=== PATIENT | male | born 1950 | race Caucasian/White ===

== ENCOUNTER 2025-06-06 12:23 | Inpatient (IN) | payer OTHER, SELFPAY ==
[2025-06-05 20:33] VITALS: BP 127/69
[2025-06-05 21:16] VITALS: BMI 24.1
[2025-06-05 21:31] VITALS: BP 117/75
[2025-06-05 21:31] LABS: Hematocrit 34.3 % (39.0-52.0); Hemoglobin 10.9 g/dL (13.0-18.0); Mean Corp Hgb Conc. 31.8 g/dL (33.0-37.0); Mean Corpuscular Volume 87.5 fL (80.0-94.0); Nucleated Red Blood Cells % 0 % (-); Platelet Count 235 10^3/uL (130-400); Red Cell Dist. Width 13.2 % (11.5-14.5)
[2025-06-05 21:41] LABS: INR 1.03; PT 13.8 Sec (11.4-14.6)
[2025-06-05 21:43] LABS: APTT 30.0 Sec (23.4-35.0)
--- NOTE | 2025-06-05 21:51 | ED.GENMED ---
History of Present Illness
General
Chief Complaint: Eye Problems
Source: patient and spouse
Exam Limitations: none
Time Seen by Provider: 06/05/25 21:04
Nursing documentation reviewed up to this point in time: agreed with
History of Present Illness
History of Present Illness:
Note:
CHIEF COMPLAINT(S)
Visual disturbance in the right eye since yesterday afternoon.
HISTORY OF PRESENT ILLNESS
The patient is a 75-year-old male who presents with a visual disturbance in his right eye, which began yesterday afternoon. Initially, the patient thought it was a smudge on his glasses, but cleaning them did not improve his vision. He reports that
the affected area, specifically in the left lower quadrant of the right eye, has gotten progressively larger since midday today. The patient denies any drainage or discharge from the eye, describing it more as a 'color thing blocking the vision.'
The patient is unable to clearly make out objects or finger counts when using the right eye.
The patient expressed concern about a potential blood clot or stroke, as there has been no resolution of symptoms. He does not have a history of hypertension and denies taking blood pressure medications.
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 He notes that he has been managing some previous thumb pain with aspirin.
SOCIAL HISTORY
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 He does not smoke, drink alcohol, or use recreational drugs.
REVIEW OF SYSTEMS
- Vision: Lower left quadrant visual disturbance in the right eye.
- Musculoskeletal: Reports neck pain associated with repetitive physical activity.
PHYSICAL EXAM
General: Alert, no acute distress.
Skin: Warm, dry.
Head: Normocephalic, atraumatic.
Neck: Supple, complains of neck pain.
Eye: Visual field deficit noted in the left lower quadrant of the right eye.
Ears, Nose, Mouth, and Throat: Oral mucosa moist.
Cardiovascular: Normal peripheral perfusion, no edema.
Respiratory: Respirations are non-labored.
Gastrointestinal: Abdomen nondistended.
Back: Normal range of motion, normal alignment.
Musculoskeletal: Normal range of motion, normal strength, reports neck pain.
Neurological: Alert and oriented to person, place, time, and situation; no focal neurological deficit observed aside from the visual issue.
Psychiatric: Cooperative, appropriate mood & affect.
PROBLEM LIST
Acute:
- Visual disturbance in the right eye, left lower quadrant.
- Neck pain.
PLAN
The plan includes further evaluation for potential blood clot in the brain or eye, or a retinal detachment. The patient will undergo a neurological evaluation, IV placement, blood tests, and a CT scan of the head. Hospital observation may be
required overnight for further assessment and management.
DIFFERENTIAL DIAGNOSIS
The Differential Diagnosis includes, in no particular order and is not limited to:
- Retinal detachment
- Stroke or transient ischemic attack
- Retinal vein occlusion
- Central retinal artery occlusion
- Macular degeneration
- Optic neuritis
- Hypertensive retinopathy
- Diabetic retinopathy
- Migraine with aura
- Vitreous hemorrhage
CARE-UPDATE
06/05/25 - 22:46
TT head and angiography show no occlusion or hemorrhage. Plan to admit the patient for further evaluation of transient visual abnormalities due to visual field cuts.
EKG
My independent EKG interpretation is:
- Time of EKG: Not provided
- Rhythm: Normal sinus rhythm
- Heart Rate: 61 bpm
- WI Interval: Normal
- QRS Duration: Normal
- QT Interval: Normal
- [place]: Not provided
- Abnormalities: No ST segment elevation
Disposition:
SUMMARY OF ENCOUNTER
The patient, a 75-year-old male, presented to the emergency department with a visual disturbance in the right eye, specifically a deficit in the left lower quadrant. After initial evaluation and tests, including a CT scan, it was determined that the
patient likely experienced an acute cerebrovascular accident (CVA) with a related visual field cut. The CT angiography of the head showed no signs of intracranial hemorrhage or large vessel occlusion. The condition was discussed with the neurology
team to determine an appropriate treatment strategy.
DISPOSITION
Admit for further evaluation and observation.
ASSESSMENT
Likely acute cerebrovascular accident (CVA) with visual field cut.
PLAN
The patient will be started on aspirin 81 mg daily, clopidogrel (Plavix) 75 mg daily, and atorvastatin 40 mg daily to manage the suspected CVA. Additional imaging, including an MRI of the brain without contrast and an echocardiogram, will be
conducted to further assess the patients condition.
INDEPENDENT REVIEW OF LABS AND INTERPRETATION OF TESTS
My independent CT angiography interpretation shows no intracranial hemorrhage or acute blockage.
MANAGEMENT OF THE PATIENTS CARE WAS DISCUSSED WITH
Discussed with Dr. Cedeno from neurology, who recommended the current medication plan and additional imaging studies.
MEDICATION RECONCILIATION
1. Aspirin 81 mg daily.
2. Clopidogrel (Plavix) 75 mg daily.
3. Atorvastatin 40 mg daily.
MEDICAL DECISION MAKING
1. Number and Complexity of Problems Addressed: Chronic conditions affecting care include visual disturbance potentially related to acute cerebrovascular accident. Differential diagnosis considers retinal detachment, stroke, retinal vein or artery
occlusion, macular degeneration, and more.
2. Data:
- Category 1: My independent interpretation of the CT angiography showed no signs of intracranial hemorrhage or acute blockage. An MRI of the brain without contrast and an echocardiogram were considered for further evaluation.
- Category 3: Collaboration and discussion of the patients care with Dr. Cedeno from neurology.
3. Risk:
Decisions regarding medication management and additional imaging were influenced by the need to address the suspected CVA and visual field cut. Admission for observation and further evaluation was deemed necessary due to the complexity and risk
associated with the patients presenting symptoms.
DIAGNOSIS
1. Acute CVA with visual field cut (ICD-10: I63.9).
Past History
Past History
ED Past Medical History: Other (Agree with past medical history)
Social History
Personal:
Living: with family
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
Phy Exam
Physical Exam
Physical Exam:
.
NIH Stroke Score
Level of Consciousness: 0 - Alert
LOC questions: 0-Answers both correctly
LOC Commands: 0-Performs both correctly
Best Gaze: 0-Normal
Visual Turk: 1=Partial hemianopia
Facial palsy: 0=Normal, symmetrical
Motor - Right Arm: 0=No drift 10 seconds
Motor - Left Arm: 0=No drift 10 seconds
Motor - Right Le-No drift 5 seconds
Motor - Left Le-No drift 5 seconds
Limb Ataxia: 0-Absent
Sensation: 0-Normal
Best Language: 0-No aphasia
Dysarthria: 0-Normal
Extinction and Inattention: 0-No abnormality
Total Score:: 1
Alteplase Contraindication
Reasons for NON-Treatment with Thrombolytics: Time
Ad Coma Scale
Eye Opening: Spontaneous
Verbal Response: Oriented
Motor Response: Obeys Commands
GCS Total Score: 15
Course
Orders/Labs/Results
Orders:
Orders
06/05/25 21:15
Electrocardiogram (*1) Stat
Reason for Study: Other
Other Reason for Exam: neuro symptoms
CT Head & Neck Angio W/wo IV Urgent
Comment:
Reason For Exam: left visual field cut since yesterday
Cardiac Monitoring- Treatment ONCE
EKG- Treatment ONCE
Pulse Ox/cont/shift [RESP] Stat
Quantity: 1
06/05/25 21:16
IV Insert/Care/Rem.- Treatment PRN
06/05/25 21:24
Complete Blood Count/With Diff Urgent
Comprehensive Metabolic Panel Urgent
PTT Urgent
Prothrombin Time Urgent
06/05/25 22:43
Aspirin 325 mg PO NOW STA
Clopidogrel Bisulfate [Plavix] 300 mg PO NOW STA
Abnormal Lab Results
06/05/25
21:24
RBC 3.92 L 10^6/uL
(4.70-6.10)
Hgb 10.9 L g/dL
(13.0-18.0)
Hct 34.3 L %
(39.0-52.0)
MCHC 31.8 L g/dL
(33.0-37.0)
Monocytes % 9.6 H %
(1.7-9.3)
BUN 34 H mg/dl
(9-20)
Total Bilirubin < 0.1 L mg/dl
(0.2-1.3)
06/05/25 21:24
06/05/25 21:24
Vital Signs
Initial and Last Documented VS:
Initial Vital Signs
Temp Pulse Resp BP Pulse Ox
97.5 F 74 18 127/69 97
06/05/25 20:33 06/05/25 20:33 06/05/25 20:33 06/05/25 20:33 06/05/25 20:33
Last Documented Vital Signs
Temp Pulse Resp BP Pulse Ox
97.5 F 61 14 117/75 97
06/05/25 20:33 06/05/25 21:31 06/05/25 21:31 06/05/25 21:31 06/05/25 21:51
*Pulse Oximetry
SaO2: 97
Oxygen Mode of Delivery: Room air
Patient hypoxic: no
*Critical Care Note
Total Time (30-74mins, 75-104mins- exclusive of procedures): Not Applicable
ED Attending Note
-
Portions of this chart may have been created with voice recognition software.� Occasional wrong word or��sound alike� substitutions may have occurred due to the inherent limitations of voice recognition software.
Discharge Plan
Departure
Patient Disposition: Admit
Date of Disposition: 06/05/25
Time of Disposition: 22:43
Admit to: Telemetry
Presentation/result/management discussed w/ accepting MD/DO: Hospitalist
Patient with high blood pressure during this ER visit?: Yes
Condition: Good
Discharge Problem:
Acute CVA (cerebrovascular accident), Visual field cut
Prescriptions:
No Action
amoxicillin-pot clavulanate 1 TABLET tablet
1 tab PO Q12 Qty: 20 0RF
Referrals:
Ainsley Padgett CRNP [Family Provider, Family Practice]
Interventions
Interventions:
*Risk Screen - Suicide Last Done: 06/05/25 20:33
*General Assessment Last Done: 06/05/25 20:33
*Neglect/Abuse Screening Last Done: 06/05/25 20:33
*ED- Fall Risk Assessment Last Done: 06/05/25 21:26
*ED COVID-19 Vaccine History Last Done: 06/05/25 21:26
*ED Influenza Vaccine History Last Done: 06/05/25 21:26
Discharge Date and Time
Print Language: GERMAN
[2025-06-05 22:00] VITALS: BP 123/82
[2025-06-05 22:02] LABS: ALT (SGPT) 17 U/L (0-50); AST (SGOT) 21 U/L (17-59); Albumin 3.8 g/dl (3.5-5.0); Alkaline Phosphatase 75 U/L (38-126); Blood Urea Nitrogen 34 mg/dl (9-20); Calcium 8.6 mg/dl (8.4-10.2); Carbon Dioxide 26 mmol/L (22-30); Chloride 105 mmol/L (98-107); Estimated Creatinine Clearance 93 ml/min; Glucose 88 mg/dl (70-99); Potassium 4.0 mmol/L (3.5-5.1); Sodium 135 mmol/L (135-145); Total Protein 6.3 g/dl (6.3-8.2); eGFR > 60.00
[2025-06-05] MEDS: PLAVIX 300 MG PO (22:56)
[2025-06-05] MEDS: ASPIRIN 325 MG PO (22:56)
--- NOTE | 2025-06-05 23:24 | HPS.HSE ---
Family Physician
-
Family Physician: BAILEY Calderon
Chief Complaint
-
vision impairment
History of Present Illness
75-year-old male past medical history of prior freckle of left eye, hyperlipidemia, osteoarthritis, presenting with visual disturbance of the right eye which started yesterday afternoon. Initially patient thought that it was a smudge on his
glasses. The affected areas in the left lower quadrant of the right eye with green/red discoloration and area of vision impairment is larger since today. No drainage or discharge from the eye. He describes it as color blocking the vision. He did
have some floaters.
He denies any double vision or headache. Denies any speech difficulty, numbness or tingling, focal weakness.
He called his border patrol officer yesterday who told him to make an appointment for Saturday. Because symptoms got worse today he came to the hospital.
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
He also complains of chronic pain in his left first metacarpophalangeal joint for which she has an appoint with Dr. Aguila this coming week. He takes aspirin and ibuprofen for this.
He denies smoking or alcohol drugs.
His parents and grandparents had congestive heart failure. No family history of strokes.
Medical History
Past Medical History
Past Medical History: Reports Other (prior freckle of left eye, hyperlipidemia, osteoarthritis, prostate cancer )
Past Surgical History: Reports Other ( Laminectomy, carpal tunnel release bilaterally, vasectomy,)
Social History
Tobacco: Non-smoker
Alcohol: None
Drug: None
Family History
Family History: Not pertinent
Allergies / Home Medications
Allergies reflects when Allergies were last updated in [facility].
Home Medications with original date entered in [facility]
Allergy/Medication List:
Allergies
Allergy/AdvReac Type Severity Reaction Status Date / Time
No Known Allergies Allergy Unverified 02/02/13 12:22
Home Medications
amoxicillin 875 mg-potassium clavulanate 125 mg tablet 1 tab PO Q12 #20 tabs 02/02/13
Review of Systems
-
History Source: Patient
A 12 point ROS was completed and negative except as noted: Yes
Constitutional: Reports No Symptoms
EENT: Reports See HPI
Respiratory: Reports No Symptoms
Cardiac: Reports No Symptoms
Abdomen/GI: Reports No Symptoms
: Reports No Symptoms
Musculoskeletal: Reports No Symptoms
Skin: Reports No Symptoms
Neurological: Reports No Symptoms
Endocrine: Reports No Symptoms
Hematologic/Lymphatic: Reports No Symptoms
Psych: Reports No Symptoms
Physical Exam
Vital Signs
Vital Signs
Temp Pulse Resp BP Pulse Ox
97.5 F 61 13 123/82 97
06/05/25 20:33 06/05/25 22:45 06/05/25 22:45 06/05/25 22:00 06/05/25 22:45
Physical Exam
General: Well Developed, Well Nourished and No Apparent Distress
HEENT: NormoCephalic, Moist mucous membranes and Atraumatic
Respiratory: Clear
Cardiac: S1/S2 and Regular Rhythm; No Murmur or Rub
GI: Soft, Non Tender, Non Distended and Normal Bowel Sounds; No Organomegaly
Rectal: Deferred by Provider
Musculoskeletal: No Clubbing, No Cyanosis and No Edema
Skin: No Rash
Neuro: Nonfocal/grossly intact
Laboratory Results
-
06/05/25 21:24
06/05/25 21:24
Laboratory Results
PT 13.8 Sec (11.4-14.6) 06/05/25 21:24
INR 1.03 06/05/25 21:24
APTT 30.0 Sec (23.4-35.0) 06/05/25 21:24
Total Bilirubin < 0.1 mg/dl (0.2-1.3) L 06/05/25 21:24
AST 21 U/L (17-59) 06/05/25 21:24
ALT 17 U/L (0-50) 06/05/25 21:24
Alkaline Phosphatase 75 U/L (38-126) 06/05/25 21:24
Data Reviewed
-
Lab Data: Labs Reviewed by me
Old Records: Reviewed
Impression/Plan
-
IMPRESSION:
PLAN:
# Right eye left lower quadrant vision impairment concerning for CVA
-CTA head and neck unremarkable
- Aspirin and Plavix started
-Continue rosuvastatin but increase dose to 20 mg
-Check A1c and lipid panel
- Check MRI brain
-check echo
- Neurology consulted
History of nevus of left eye
- No symptoms of left
Presumed chronic anemia
- Hemoglobin 10.9
Hyperlipidemia
- Continue statin
History of osteoarthritis/degenerative disc disease
- Chronic neck pain
Herniated disc status post laminectomy
Hyperextension injury of left first digit/osteoarthritis first MCP joint
- Supposed to see Dr. Aguila this upcoming week
History of crush injury of left hand
Prostate cancer status post radiation
Full code
DVT prophylaxis�SCDs
Regular diet
[2025-06-06 00:03] VITALS: BMI 23.9
--- NOTE | 2025-06-06 00:04 | PTCARENOTE ---
Pt admitted to [facility]1 from ED. Pt AAOx3, ambulated with steady gait from stretcher to bed. Denies c/o pain other than R neck (chronic) and Pt c/o R eye (middle and lower) visual field impairment also seeing green and pink colors. NIH score=1. SR on
tele. VSS. plan of care reviewed. Call varner within reach.
[2025-06-06 00:59] VITALS: BP 126/67
[2025-06-06 05:48] VITALS: BP 113/63
[2025-06-06 06:59] LABS: Hematocrit 34.0 % (39.0-52.0); Hemoglobin 10.8 g/dL (13.0-18.0); Mean Corp Hgb Conc. 31.8 g/dL (33.0-37.0); Mean Corpuscular Volume 85.9 fL (80.0-94.0); Platelet Count 222 10^3/uL (130-400); Red Cell Dist. Width 13.3 % (11.5-14.5)
[2025-06-06 07:25] LABS: Blood Urea Nitrogen 27 mg/dl (9-20); Calcium 8.6 mg/dl (8.4-10.2); Carbon Dioxide 28 mmol/L (22-30); Chloride 105 mmol/L (98-107); Estimated Creatinine Clearance 93 ml/min; Glucose 84 mg/dl (70-99); HDL Cholesterol 50 mg/dl; LDL Cholesterol, Calculated 67 mg/dl; Potassium 4.2 mmol/L (3.5-5.1); Sodium 134 mmol/L (135-145); Very Low Density Lipoprotein 11 mg/dl (0-30); eGFR > 60.00
[2025-06-06] MEDS: LOW STRENGTH ASPIRIN 81 MG PO (07:35)
[2025-06-06] MEDS: PLAVIX 75 MG PO (07:35)
[2025-06-06 07:56] VITALS: BP 120/71
--- NOTE | 2025-06-06 08:44 | W.PN.HOSP.TC ---
Addendum entered and electronically signed by Paul Fernandez DO 06/06/25 11:42:
Brain MRI negative.
Spoke with Dr. Odom, plan for DAPT x 21 days then aspirin alone.
No driving on discharge until evaluated by OT.
Follow up with Ophtho and Neuro in office.
Discharge today.
Original Note:
Today's Communication/Plan
-
Brain MRI
Neurology consult
Assessment / Plan
Assessment / Plan
Gen-AAOx3, NAD
HEENT-NC, AT, anicteric, clear oral mm
Neck-supple
CV-reg, no M, +S1/S2
Lungs-clear B/L
Abd-soft, NT, ND
Ext-no edema
Musculoskeletal-no cyanosis, clubbing
Skin-warm and dry
Neuro-grossly non-focal
Psych-calm, cooperative
Right eye visual impairment -characterized as left bottom inner quadrant of the right eye. Differential diagnosis of cerebral versus retinal stroke. Brain MRI pending. Neurology consulted.
Patient denies history of stroke.
Started on aspirin and Plavix on admission.
Hyperlipidemia -rosuvastatin dose increased.
LDL 67, HDL 50, triglycerides 58, total cholesterol 128.
Mild hyponatremia -134. Monitor for now.
Normocytic anemia -unknown acuity, etiology. Outpatient follow-up.
History of prostate cancer -s/p radiation.
Full code
Anticipated Discharge: Within 24 hours
Subjective/Interval History
-
Date of Service: June 06, 2025
Patient seen and examined. No change in his visual impairment. No other complaints.
Objective Data
-
Labs:
Laboratory Results
06/05/25 06/06/25
21:24 06:39
WBC 6.6 5.1
Hgb 10.9 L 10.8 L
Hct 34.3 L 34.0 L
Plt Count 235 222
PT 13.8
INR 1.03
APTT 30.0
Sodium 135 134 L
Potassium 4.0 4.2
Chloride 105 105
Carbon Dioxide 26 28
BUN 34 H 27 H
Creatinine 0.7 0.7
Glucose 88 84
Calcium 8.6 8.6
Total Bilirubin < 0.1 L
AST 21
ALT 17
Alkaline Phosphatase 75
Vital Signs:
Vital Signs
Temp Pulse Resp BP Pulse Ox
97.6 F 62 17 120/71 98
06/06/25 07:56 06/06/25 07:56 06/06/25 07:56 06/06/25 07:56 06/06/25 07:56
Review of Systems
-
History Source: Patient
All other systems: Reviewed and negative
--- NOTE | 2025-06-06 08:46 | CON.NEURO4 ---
Consultation - Neurology 4
-
CONSULTING PHYSICIAN: Dr. Hiram Odom
REFERRING PHYSICIAN: Dr. Luis Armando Watkins
DICTATED BY: Dr. Hiram Odom
DATE/TIME OF REQUEST: 06/05/2025
DATE/TIME OF CONSULTATION:
Reason for Consultation: Visual disturbance
ASSESSMENT AND PLAN:
The patient is a 75 years old male, with onset of visual disturbance two days ago, sudden in onset and still persisting. Says that he cannot see in the left lower visual field of the right eye, with the left eye covered. On visual field examination
on confrontation the visual briceño are grossly normal. The patient may have had a branch retinal artery stroke on the right side. The patient denies any headache or temporal tenderness.
The patient may have had a branch retinal artery occlusion.
. ESR and CRP.
. CT head does not show an acute intracranial abnormality.
. CTA head/neck did not show a large vessel occlusion.
. MRI of brain is normal.
. Echocardiogram.
. No driving until cleared by an Reheater Helper and a Neurologist to drive.
. Need ophthalmology consult for formal visual field examination as soon as possible.
. Aspirin 81 mg daily, plavix 75 mg x 21 days, after 21 days stop Plavix and only take aspirin.
. Continue Rosuvastatin.
. Follow up [facility] as an outpatient as soon as possible.
. D/W Dr. Paul Fernandez
History of Present Illness:
The patient is a 75 years old male, with a past medical history of hyperlipidemia, osteoarthritis, presenting with visual disturbance of the right eye which started one day prior to admission. Initially patient thought that it was a smudge on his
glasses. The affected areas in the left lower quadrant of the right eye with green/red discoloration and area of vision impairment was larger on the day of admission. No drainage or discharge from the eye. He describes it as color blocking the
vision. He did have some floaters. The patient is unable to clearly make out objects or finger counts when using the right eye. The patient denies headache and any temporal tenderness.
The patient expressed concern about a potential blood clot or stroke, as there has been no resolution of symptoms. He does not have a history of hypertension and denies taking blood pressure medications.
Past Medical History: Hyperlipidemia and osteoarthritis.
Review of Systems:
The 10 point review of systems was negative aside from as given in the aboe history of present illness.
Neurologic Examination:
Alert and oriented x 3,
Speech is clear,
The cranial nerves II-XII are grossly intact. The visual briceño examination by confrontation is grossly normal.
The motor strength is grossly 5/5 in bilateral upper and lower extremities.
The sensations are grossly intact.
The cerebellar examination does not show limb ataxia.
Vital Signs and Labs
-
Vital Signs and Labs:
Vital Signs
Temp Pulse Resp BP Pulse Ox
36.4 C 62 17 120/71 98
06/06/25 07:56 06/06/25 07:56 06/06/25 07:56 06/06/25 07:56 06/06/25 07:56
Lab Results
06/06/25 06:39
06/06/25 06:39
PT 13.8 Sec (11.4-14.6) 06/05/25 21:24
INR 1.03 06/05/25 21:24
APTT 30.0 Sec (23.4-35.0) 06/05/25 21:24
Sodium 134 mmol/L (135-145) L 06/06/25 06:39
Potassium 4.2 mmol/L (3.5-5.1) 06/06/25 06:39
BUN 27 mg/dl (9-20) H 06/06/25 06:39
Glucose 84 mg/dl (70-99) 06/06/25 06:39
Calcium 8.6 mg/dl (8.4-10.2) 06/06/25 06:39
LDL Cholesterol, Calc 67 mg/dl 06/06/25 06:39
Medications
-
Active Medications
Generic Name Dose Route Start Last Admin
Trade Name Isela PRN Reason Stop Dose Admin
Aspirin 81 mg 06/06/25 08:00 06/06/25 07:35
Aspirin 81 Mg Chewable Tablet PO 07/04/25 07:59 81 mg
DAILY YOAN Administration
Clopidogrel Bisulfate 75 mg 06/06/25 08:00 06/06/25 07:35
Clopidogrel 75 Mg Tablet PO 07/04/25 07:59 75 mg
DAILY YOAN Administration
Rosuvastatin Calcium 20 mg 06/06/25 18:00
Rosuvastatin (Crestor) 20 Mg Tablet PO 07/04/25 17:59
QPM YOAN
Home Medications
�Medication �Instructions �Recorded
amoxicillin 875 mg-potassium 1 tab PO Q12 Infection 06/06/25
clavulanate 125 mg tablet
[2025-06-06 10:55] LABS: Glycohemoglobin (HgbA1c) 5.7 % (4.0-5.9)
[2025-06-06 11:19] VITALS: BP 111/64
--- NOTE | 2025-06-06 12:17 | W.DS.TRANS ---
DC Summary - [employer]
-
Discharge Instructions:
Discharge Diagnosis/Procedures Right eye visual field cut, possible stroke
Diet Low Fat,Low Cholesterol
Activity As tolerated
Driving Restrictions No driving
Bathing Restrictions None
Other Services OT
Instructions:
Stand-Alone Forms:
Changes to Home Medications: No
Discharge Medications:
DC Medications w/original date entered in [facility]
aspirin 81 mg chewable tablet 81 mg PO DAILY #30 tabs 06/06/25
clopidogrel 75 mg tablet 75 mg PO DAILY #19 tabs 06/06/25
rosuvastatin 20 mg tablet 20 mg PO QPM #30 tabs 06/06/25
Home Medication Changes
Pending Results: No
--- NOTE | 2025-06-06 13:23 | CM ---
CM reviewed chart, patient seen bedside, initial assessment completed.
Patient resides with his in a multiple story home, one step to enter.
Patient is independent, works, no DME, VN/SNF.
PCP Ainsley Padgett, [facility].
Patient provided with JE[facility] form, placed in chart.
Patient for d/c today- to transport home. Patient has script for outpatient therapy.
Plan; home with
== END 2025-06-06 13:55 | disposition home or self-care (01) | DRG 65 ==
LOC: 4 WEST ACU 12:23
PROVIDERS: ADMITTING PHYSICIAN Hospitalist; ATTENDING PHYSICIAN Hospitalist; CONSULT PHYSICIAN Psychiatry & Neurology Neurology; EMERGENCY PHYSICIAN Emergency Medicine; FAMILY PHYSICIAN Nurse Practitioner Family
DX: I63.9 Cerebral infarction, unspecified (principal); E87.1 Hypo-osmolality and hyponatremia; H53.40 Unspecified visual field defects; Z79.82 Long term (current) use of aspirin; E78.5 Hyperlipidemia, unspecified; Z92.3 Personal history of irradiation; D64.9 Anemia, unspecified; G89.29 Other chronic pain; H54.7 Unspecified visual loss; Z79.02 Long term (current) use of antithrombotics/antiplatelets; Z79.899 Other long term (current) drug therapy; Z82.49 Family history of ischemic heart disease and other diseases of the circulatory system; Z85.46 Personal history of malignant neoplasm of prostate
CPT/HCPCS: 70496; 70498; 70551; 80048; 80053; 80061; 83036; 85025; 85027; 85610; 85730; 93005; 94760; 97162; 97166; 99285; Q9967